=== PATIENT | male | born 1985 | race African-American/Black ===

== ENCOUNTER 2016-05-08 10:57 | Emergency (ER) | payer OTHER ==
[2016-05-08 11:03] VITALS: O2SAT 96
[2016-05-08] MEDS ORDERED: IPRATROPIUM/ALBUTEROL 3 ML DEYVIAL ONE (11:10)
[2016-05-08] MEDS ORDERED: IPRATROPIUM/ALBUTEROL 3 ML DEYVIAL IH ONE ×2 (11:19→11:58)
[2016-05-08] MEDS ORDERED: ALBUTEROL 3 ML DEYVIAL IH ONE (11:20)
[2016-05-08 11:21] VITALS: RESP 18
--- NOTE | 2016-05-08 11:23 | EDPHY ---
H & P Time Seen by Provider: 05/08/16 11:11 HPI/ROS: CHIEF COMPLAINT: Shortness of breath HISTORY OF PRESENT ILLNESS: The patient is a 30 year old male with history of asthma, presenting with dyspnea that started this morning. The patient developed cold like symptoms of cough and congestion 4 days ago. This morning he developed shortness of breath. He used his inhaler about 10 times today with no relief. He reports difficulty with deep inhalation. The patient was seen at urgent care and given DuoNeb and Decadron 10mg IM. He continued to have shortness of breath and was sent here for further evaluation. He denies chest pain. REVIEW OF SYSTEMS: Aside from elements discussed in the HPI, a comprehensive 10-point review of systems was reviewed and is negative. Past Medical/Surgical History: Asthma. Social History: no recent alcohol Smoking Status: Never smoked Physical Exam: General Appearance: Alert, no distress Eyes: Pupils equal and round, no conjunctival pallor or injection ENT, Mouth: Mucous membranes moist Neck: Normal inspection Respiratory: Normal respiratory rate, Patient is able to speak full sentences, Diffuse expiratory wheezes Cardiovascular: Regular rate and rhythm Gastrointestinal: Abdomen is soft and non-tender Neurological: A&O, nonfocal, normal gait Skin: Warm and dry, no rash Extremities: Nontender, no pedal edema Psychiatric: Mood and affect normal Constitutional: Initial Vital Signs Temperature (C) 36.5 C 05/08/16 11:02 Heart Rate 126 H 05/08/16 11:02 Respiratory Rate 24 H 05/08/16 11:02 Blood Pressure 138/85 H 05/08/16 11:02 O2 Sat (%) 96 05/08/16 11:02 O2 Delivery Mode Room Air Allergies/Adverse Reactions: No Known Allergies Allergy (Verified 07/21/15 06:17) Home Medications: Medication Instructions Recorded Albuterol [Proventil Inhaler] 2 puffs IH BID PRN 07/16/13 Ibuprofen [Motrin] 400 mg PO BID PRN 07/16/13 Azithromycin [Zithromax] 250 mg PO DAILY #6 tab 05/08/16 predniSONE 1 tab PO DAILY #15 tab 05/08/16 Medical Decision Making ED Course/Re-evaluation: This patient presents with persistent bronchospasm, without evidence of pneumonia. He was given albuterol nebs x3 and felt much better after the nebulized breathing treatments. Wants to go home. Oxygen saturation 98% on room air. Chest exam-persistent expiratory wheezing with good air exchange. I will send him home with an albuterol inhaler, a prednisone taper and with Zithromax. Differential Diagnosis: includes though not limited to pneumonia, status asthmaticus, hypoxia, respiratory failure. - Data Points Medications Given: Discontinued Medications Albuterol (Proventil Neb) 3 ml IH EDNOW ONE Stop: 05/08/16 11:21 Last Admin: 05/08/16 11:35 Dose: 3 ml Albuterol/Ipratropium (Duoneb) 3 ml IH EDNOW ONE Stop: 05/08/16 11:20 Last Admin: 05/08/16 11:21 Dose: 3 ml Albuterol/Ipratropium (Duoneb) 3 ml IH EDNOW ONE Stop: 05/08/16 11:59 Last Admin: 05/08/16 12:05 Dose: 3 ml Departure - Departure Disposition: Home, Routine, Self-Care Clinical Impression: Asthma exacerbation Qualifiers: Asthma severity: mild intermittent Qualifier Code: (J45.21) Mild intermittent asthma with (acute) exacerbation Instructions: Asthma (ED) Additional Instructions: Drink plenty of fluids. Take Prednisone as directed. Take full course of antibiotics as prescribed. Use inhaler as needed. Followup with your primary care physician is symptoms persist. Return to the Emergency Department with new or worsening symptoms. Referrals: Luke Viramontes MD [Primary Care Provider] - As per Instructions Prescriptions: Azithromycin [Zithromax] 250 mg PO DAILY #6 tab predniSONE 1 tab PO DAILY #15 tab Report Scribed for: Francisca Holloway Report Scribed by: Gay Lucio Date of Report: 05/08/16 Time of Report: 11:23 Physician Review and Approval Statement: 05/08/16 11:23 Portions of this note were transcribed by a medical practice administrator. I personally performed the history, physical exam, and medical decision-making; and confirmed the accuracy of the information in the transcribed note.
[2016-05-08 12:20] VITALS: BP 144/89; PULSE 103; TEMP 97.3
== END 2016-05-08 12:31 | disposition home or self-care (01) ==
DX: J45.21 Mild intermittent asthma with (acute) exacerbation (principal)

== ENCOUNTER 2017-04-10 11:41 | Emergency (ER) | payer OTHER ==
[2017-04-10] MEDS ORDERED: ALBUTEROL 3 ML DEYVIAL ONE ×2 (11:46→12:13)
[2017-04-10] MEDS ORDERED: IPRATROPIUM/ALBUTEROL 3 ML DEYVIAL IH ONE (11:51)
[2017-04-10] MEDS ORDERED: predniSONE 20 MG TAB ONE (11:59)
[2017-04-10] MEDS ORDERED: predniSONE 20 MG TAB PO ONE (12:00)
--- NOTE | 2017-04-10 12:15 | EDPHY ---
H & P Stated Complaint: asthma exacerbation Time Seen by Provider: 04/10/17 11:54 HPI/ROS: CHIEF COMPLAINT: Severe dyspnea HISTORY OF PRESENT ILLNESS: The patient has a history of asthma and presents to the ED with 1 day of severe dyspnea. The patient has had symptoms of an acute asthma exacerbation over the past several days. He has been using his albuterol inhaler frequently without improvement of his symptoms. The patient denies recent hospitalization or steroid use. The patient denies tobacco use. The patient denies any complaints of fever, he denies asymmetric calf pain or swelling. The patient denies additional significant past medical history. He does report severe dyspnea in the emergency department today. REVIEW OF SYSTEMS: A comprehensive 10 point review of systems is otherwise negative aside from elements mentioned in the history of present illness. Source: Patient - Personal History Current Tetanus/Diphtheria Vaccine: Yes Tetanus Vaccine Date: 2012 - Medical/Surgical History Hx Asthma: Yes Hx Chronic Respiratory Disease: Yes Hx Diabetes: No Hx Cardiac Disease: No Hx Renal Disease: No Hx Cirrhosis: No Hx Alcoholism: No Hx HIV/AIDS: No Hx Splenectomy or Spleen Trauma: No Other PMH: concussion, bronchitis, childhood asthma. - Social History Smoking Status: Never smoked - Physical Exam Exam: General Appearance: Alert, severe distress secondary to tachypnea Eyes: Pupils equal and round no pallor or injection ENT, Mouth: Mucous membranes moist Respiratory: Severe tachypnea, diffuse expiratory wheezing Cardiovascular: Tachycardic Gastrointestinal: Abdomen is soft and nontender, no masses, bowel sounds normal Neurological: A&O, normal motor function, normal sensory exam, normal cranial nerves Skin: Warm and dry, no rashes Musculoskeletal: Neck is supple nontender Extremities: symmetrical, full range of motion Constitutional: Initial Vital Signs Temperature (C) 36.9 C 04/10/17 11:43 Heart Rate 132 H 04/10/17 11:43 Respiratory Rate 40 H 04/10/17 11:43 Blood Pressure 132/101 H 04/10/17 11:43 O2 Sat (%) 98 04/10/17 11:43 O2 Delivery Mode Room Air Allergies/Adverse Reactions: No Known Allergies Allergy (Verified 04/10/17 11:43) Home Medications: Medication Instructions Recorded Albuterol [Proventil Inhaler] 2 puffs IH BID PRN 07/16/13 predniSONE [prednisone 20mg (RX)] 3 tab PO DAILY #15 tab 04/10/17 Medical Decision Making - Diagnostics Imaging Results: Imaging Impressions Chest X-Ray 04/10/17 12:04 Impression: 1. Findings consistent with airways disease. 2. Nodular opacity left mid lung, this may be inflammatory with follow-up recommended as clinically directed. ED Course/Re-evaluation: The patient presents to the ED with a severe asthma exacerbation. The patient received a DuoNeb and 2 albuterol nebulize treatments. He received 60 mg of oral prednisone. The patient received supplemental oxygen. The patient was started Heliox in the emergency department. The patient received a continuous albuterol nebulizer treatment. The patient was evaluated by myself multiple times over a 2.5 hr period in the emergency department. At 2:40 p.m. he is feeling much better and would like to be discharged. While the patient does have scant expiratory wheezing he is no longer tachypneic or hypoxemic. The patient will be started on oral steroids. He is encouraged to continue using his albuterol as prescribed. The patient is advised to return to the emergency department for markedly worsening chest pain, difficulty breathing or other concerns. The patient will follow up with his primary care provider for a recheck in the next week. He is advised to have a repeat chest x-ray in 3-6 months for follow- up of a small nodularity seen today. Differential Diagnosis: Differential diagnosis considered includes asthma, bronchitis, pneumonia Critical Care Time: Critical care time exclusive of procedures and exclusive of the PA's time was 35 minutes, performed by myself, Tom Monte MD. The patient presents to the ED with a severe asthma exacerbation with tachycardia, severe tachypnea and hypoxemia.. This required immediate treatment with multiple nebulizers and ultimately Heliox. The patient was placed on a continuous albuterol nebulizer in the emergency department. He required multiple bedside examinations. - Data Points Medications Given: Discontinued Medications Albuterol/Ipratropium (Duoneb) 3 ml IH EDNOW ONE Stop: 04/10/17 11:52 Last Admin: 04/10/17 11:51 Dose: 3 ml Prednisone (Prednisone) 60 mg PO EDNOW ONE Stop: 04/10/17 12:01 Last Admin: 04/10/17 12:01 Dose: 60 mg Departure - Departure Disposition: Home, Routine, Self-Care Clinical Impression: Exacerbation of asthma Qualifiers: Asthma severity: severe Asthma persistence: persistent Qualified Code(s): J45.51 - Severe persistent asthma with (acute) exacerbation Condition: Good Instructions: Asthma (ED) Additional Instructions: 1. Please schedule a follow-up appointment with Dr. Viramontes for recheck within the next week. 2. Prednisone as directed for next 5 days. 3. Use albuterol inhaler up to every 2 hr as needed. 4. Please have your primary care provider repeat a chest x-ray in 3-6 months to follow up a small nodule seen on the x-ray today. Referrals: Luke Viramontes MD [Primary Care Provider] - As per Instructions Prescriptions: predniSONE [prednisone 20mg (RX)] 3 tab PO DAILY #15 tab
[2017-04-10 13:30] VITALS: RESP 18
[2017-04-10 14:59] VITALS: BP 113/77; PULSE 113; TEMP 98.8; O2SAT 96
== END 2017-04-10 14:59 | disposition home or self-care (01) ==
DX: J45.51 Severe persistent asthma with (acute) exacerbation (principal)

== ENCOUNTER 2017-06-22 04:24 | Inpatient (IN) | payer OTHER ==
[2017-06-22] MEDS ORDERED: MAGNESIUM SULF 2 GM/WATER 50 ML BAG IV ONE (04:25)
[2017-06-22] MEDS ORDERED: methylPREDNISolone SOD SUCC 125 MG/2 ML VIAL ONE (04:25)
[2017-06-22] MEDS ORDERED: methylPREDNISolone SOD SUCC 125 MG/2 ML VIAL IVP ONE (04:27)
[2017-06-22] MEDS ORDERED: MAGNESIUM SULF 2 GM/WATER 50 ML IV ONE (04:28)
[2017-06-22] MEDS ORDERED: IPRATROPIUM/ALBUTEROL 3 ML DEYVIAL ONE (04:28)
[2017-06-22] MEDS ORDERED: ALBUTEROL 3 ML DEYVIAL ONE ×3 (04:37→04:38)
--- NOTE | 2017-06-22 04:44 | EDPHY ---
H & P Stated Complaint: asthma exacerbation, sx started approx 0100 HPI/ROS: Chief Complaint: Shortness of breath HPI: 31-year-old male with a history of intermittent asthma woke at 2 o'clock this morning severely short of breath. He had run out of his rescue inhaler in the used a nebulizer that he would have for some time. Is not sure when he got the nebulizer solution in his pretty sure that it has . On EMS arrival the patient was extremely short of breath speaking only 1-2 word phrases an very tight. They initiated CPAP and gave him a DuoNeb treatment. Patient states that he is not on normal control inhalers. Last asthma attack was 2 years ago. He has been intubated in the past. Usually triggered by upper respiratory illness but has not been sick lately. No new exposures. No fevers or chills. No cough. No nausea or vomiting. ROS: 10 point Review of Systems is negative except as noted in the HPI. PMH: Asthma Social History: No smoking, occasional alcohol, no recreational drug use Family History: non-contributory Physical Exam: Gen: Awake, Alert, in respiratory distress HEENT: Nose: no rhinorrhea Eyes: PERRLA, EOMI Mouth: Moist mucosa Neck: Supple, no JVD Chest: nontender, diminished breath sounds bilaterally with diffuse expiratory wheezing Heart: S1, S2 normal, no murmur Abd: Soft, non-tender, no guarding Back: no CVA tenderness, no midline tenderness Ext: no edema, non-tender Skin: no rash Neuro: CN II-XII intact, Sensation grossly intact, Strength 5/5 in bilateral upper and lower extremities - Personal History Tetanus Vaccine Date: 2012 - Medical/Surgical History Hx Asthma: Yes Hx Chronic Respiratory Disease: Yes Hx Diabetes: No Hx Cardiac Disease: No Hx Renal Disease: No Hx Cirrhosis: No Hx Alcoholism: No Hx HIV/AIDS: No Hx Splenectomy or Spleen Trauma: No Other PMH: concussion, bronchitis, asthma. - Social History Smoking Status: Never smoked Constitutional: Initial Vital Signs Heart Rate 124 H 06/22/17 04:30 Respiratory Rate 20 06/22/17 04:30 Blood Pressure 157/100 H 06/22/17 04:30 O2 Sat (%) 100 06/22/17 04:30 O2 Delivery Mode Bi-Pap O2 (L/minute) 15 Allergies/Adverse Reactions: No Known Allergies Allergy (Verified 06/22/17 04:33) Home Medications: Medication Instructions Recorded Albuterol [Proventil Inhaler] 2 puffs IH BID PRN 07/16/13 predniSONE [prednisone 20mg (RX)] 3 tab PO DAILY #15 tab 04/10/17 Medical Decision Making ED Course/Re-evaluation: Patient presenting in status asthmaticus. Patient on CPAP and has received 1 DuoNeb. IV placed by EMS. In the emergency department he was immediately placed on BiPAP. Solu-Medrol 125 mg ordered. Second DuoNeb ordered. Magnesium 2 g IV ordered. Patient is improved. He states he is feeling better. He is speaking in nearly full sentences. Oxygen saturations 100% on BiPAP. I have ordered a 10 mg continuous albuterol neb. Continues have diffuse expiratory wheezing but is moving more air. I have ordered chest x-ray and labs in anticipation patient will be admitted. Discussed with Dr. Zapata, hospitalist. Will admit to the Step-Down Unit for further care. - Data Points Laboratory Results: Laboratory Results 06/22/17 04:20 06/22/17 06/22/17 04:20 04:20 WBC 9.72 10^3/uL H 10^3/uL (3.80-9.50) RBC 6.44 10^6/uL H 10^6/uL (4.40-6.38) Hgb 17.6 g/dL H g/dL (13.7-17.5) Hct 50.1 % % (40.0-51.0) MCV 77.8 fL L fL (81.5-99.8) MCH 27.3 pg L pg (27.9-34.1) MCHC 35.1 g/dL g/dL (32.4-36.7) RDW 14.8 % % (11.5-15.2) Plt Count 215 10^3/uL 10^3/uL (150-400) MPV 9.4 fL fL (8.7-11.7) Neut % (Auto) 60.1 % % (39.3-74.2) Lymph % (Auto) 27.2 % % (15.0-45.0) [place] % (Auto) 9.3 % % (4.5-13.0) Eos % (Auto) 2.6 % % (0.6-7.6) Baso % (Auto) 0.5 % % (0.3-1.7) Nucleat RBC Rel Count 0.0 % % (0.0-0.2) Absolute Neuts (auto) 5.85 10^3/uL 10^3/uL (1.70-6.50) Absolute Lymphs (auto) 2.64 10^3/uL 10^3/uL (1.00-3.00) Absolute Monos (auto) 0.90 10^3/uL H 10^3/uL (0.30-0.80) Absolute Eos (auto) 0.25 10^3/uL 10^3/uL (0.03-0.40) Absolute Basos (auto) 0.05 10^3/uL 10^3/uL (0.02-0.10) Absolute Nucleated RBC 0.00 10^3/uL 10^3/uL (0-0.01) Immature Gran % 0.3 % % (0.0-1.1) Immature Gran # 0.03 10^3/uL 10^3/uL (0.00-0.10) Sodium Pending Potassium Pending Chloride Pending Carbon Dioxide Pending Anion Gap Pending BUN Pending Creatinine Pending Estimated GFR Pending Glucose Pending Calcium Pending Medications Given: Magnesium Sulfate (Magnesium Sulf 2 Gm (Premix)) 50 mls @ 50 mls/hr IV EDNOW ONE Stop: 06/22/17 05:27 Last Admin: 06/22/17 04:29 Dose: 50 mls Discontinued Medications Methylprednisolone Sodium Succinate (Solu-Medrol) 125 mg IVP EDNOW ONE Stop: 06/22/17 04:28 Last Admin: 06/22/17 04:27 Dose: 125 mg Departure - Departure Disposition: [facility] In[facility] Acute Clinical Impression: Status asthmaticus Condition: Serious Referrals: Patient,NotPresent [Primary Care Provider] - As per Instructions
[2017-06-22 04:50] LABS: PLATELET COUNT 215 10^3/uL (150-400)
[2017-06-22] MEDS ORDERED: ONDANSETRON DISINTEGRATING 4 MG TAB PO PRN (04:53)
[2017-06-22] MEDS ORDERED: ACETAMINOPHEN 325 MG TAB PO PRN (04:53)
[2017-06-22] MEDS ORDERED: ONDANSETRON 4 MG/2 ML VIAL IVP PRN (04:53)
--- NOTE | 2017-06-22 05:12 | PDGENHP ---
History and Physical - Chief Complaint Shortness of breath - History of Present Illness 31 yo M w/ hx of asthma presents with acute exacerbation. Patient states he felt "tight" yesterday morning but generally functioned ok throughout the day. He went to sleep and woke up in the middle of the night with severe shortness of breath. Upon arrival in ED he was speaking in 1-2 word phrases and was put on BIPAP. He has improved with nebulization treatments and ongoing NIPPV. 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 He uses is albuterol inhaler about 15 times weekly and is not on a controller medication. His last exacerbation was in April of 2017. History Information - Allergies/Home Medication List Allergies/Adverse Reactions: No Known Allergies Allergy (Verified 06/22/17 04:33) Home Medications: Albuterol [Proventil Inhaler] 2 puffs IH BID PRN 07/16/13 [Last Taken 07/16/13] I have personally reviewed and updated: family history, medical history - Past Medical History asthma - Surgical History Reports: no pertinent surgical hx - Family History Positive for: asthma - Social History Smoking Status: Never smoked Review of Systems Review of Systems: ROS: 10pt was reviewed & negative except for what was stated in HPI & below Physical Exam Physical Exam: Temp Pulse Resp BP Pulse Ox 36.4 C 120 H 26 H 143/87 H 100 06/22/17 04:53 06/22/17 05:00 06/22/17 05:00 06/22/17 05:00 06/22/17 05:00 Constitutional: appears nourished, uncomfortable Eyes: PERRL, EOMI Ears, Nose, Mouth, Throat: moist mucous membranes, no oral mucosal ulcers Cardiovascular: regular rate and rhythym, tachycardia Respiratory: reduced air movement, expiratory wheeze, respiratory distress Gastrointestinal: normoactive bowel sounds, soft, non-tender abdomen Skin: warm, normal color Musculoskeletal: full muscle strength, no muscle tenderness Neurologic: AAOx3, CN II-XII Intact Psychiatric: interacting appropriately, not encephalopathic Lab Data & Imaging Review 06/22/17 04:20 06/22/17 04:20 WBC 9.72 10^3/uL (3.80-9.50) H 06/22/17 04:20 RBC 6.44 10^6/uL (4.40-6.38) H 06/22/17 04:20 Hgb 17.6 g/dL (13.7-17.5) H 06/22/17 04:20 Hct 50.1 % (40.0-51.0) 06/22/17 04:20 MCV 77.8 fL (81.5-99.8) L 06/22/17 04:20 MCH 27.3 pg (27.9-34.1) L 06/22/17 04:20 MCHC 35.1 g/dL (32.4-36.7) 06/22/17 04:20 RDW 14.8 % (11.5-15.2) 06/22/17 04:20 Plt Count 215 10^3/uL (150-400) 06/22/17 04:20 MPV 9.4 fL (8.7-11.7) 06/22/17 04:20 Neut % (Auto) 60.1 % (39.3-74.2) 06/22/17 04:20 Lymph % (Auto) 27.2 % (15.0-45.0) 06/22/17 04:20 [place] % (Auto) 9.3 % (4.5-13.0) 06/22/17 04:20 Eos % (Auto) 2.6 % (0.6-7.6) 06/22/17 04:20 Baso % (Auto) 0.5 % (0.3-1.7) 06/22/17 04:20 Nucleat RBC Rel Count 0.0 % (0.0-0.2) 06/22/17 04:20 Absolute Neuts (auto) 5.85 10^3/uL (1.70-6.50) 06/22/17 04:20 Absolute Lymphs (auto) 2.64 10^3/uL (1.00-3.00) 06/22/17 04:20 Absolute Monos (auto) 0.90 10^3/uL (0.30-0.80) H 06/22/17 04:20 Absolute Eos (auto) 0.25 10^3/uL (0.03-0.40) 06/22/17 04:20 Absolute Basos (auto) 0.05 10^3/uL (0.02-0.10) 06/22/17 04:20 Absolute Nucleated RBC 0.00 10^3/uL (0-0.01) 06/22/17 04:20 Immature Gran % 0.3 % (0.0-1.1) 06/22/17 04:20 Immature Gran # 0.03 10^3/uL (0.00-0.10) 06/22/17 04:20 Sodium 144 mEq/L (135-145) 06/22/17 04:20 Potassium 4.0 mEq/L (3.5-5.2) 06/22/17 04:20 Chloride 105 mEq/L (97-110) 06/22/17 04:20 Carbon Dioxide 22 mEq/l (22-31) 06/22/17 04:20 Anion Gap 17 mEq/L (8-16) H 06/22/17 04:20 BUN 12 mg/dL (7-23) 06/22/17 04:20 Creatinine 0.8 mg/dL (0.7-1.3) 06/22/17 04:20 Estimated GFR > 60 06/22/17 04:20 Glucose 148 mg/dL (70-100) H 06/22/17 04:20 Calcium 8.9 mg/dL (8.5-10.4) 06/22/17 04:20 Visualized and Interpreted Chest x-ray results: Yes Chest X-Ray results: no infiltrate Assessment & Plan Assessment: 31 yo M w/ hx of asthma presents with acute exacerbation. Plan: 1. Moderate persistent asthma with acute exacerbation - Severe on presentation with significant respiratory distress and 2 word dyspnea. He is mildly improved now after steroids, nebulizer treatments, and NIPPV. He denies recent URI symptoms so trigger unclear although baseline control seems poor noting albuterol use about 15x weekly and last exacerbation in April. No additional controller medication use regularly. - Admit to SDU for close monitoring - Continuous albuterol nebulization now, 10 mg over 1 hour - Albuterol IH q4h juany + q2h PRN after that w/ continuous as needed - Will continue methylprednisolone q6h IV for now noting severity of exacerbation - Recommend additional controller medication at discharge Diet - Regular Code - Full Ppx - Low risk Dispo - Admit to SDU under observation status
[2017-06-22] MEDS ORDERED: NS 500 ML IV ONE (05:20)
[2017-06-22] MEDS: ALBUTEROL 3 ML DEYVIAL IH SCH ×2 (06:07→08:40)
[2017-06-22] MEDS ORDERED: predniSONE 20 MG TAB PO SCH (09:00)
[2017-06-22] MEDS ORDERED: methylPREDNISolone SOD SUCC 125 MG/2 ML VIAL IVP SCH (10:00)
--- NOTE | 2017-06-22 10:32 | HOSPPROG ---
Hospitalist Progress Note Assessment/Plan: # acute asthma exacerbation - improving but still significant bilat wheezes on exam - cont steroids (decrease), albuterol prn - started on advair and azith # acute hypoxic resp failure - cont SDU monitoring # lung nodule - resolved on CXR from today Objective: Vital Signs Temp Pulse Resp BP Pulse Ox 36.6 C 112 H 16 125/77 H 97 06/22/17 06:24 06/22/17 08:40 06/22/17 08:40 06/22/17 06:24 06/22/17 08:40 06/21/17 06/22/17 06/23/17 05:59 05:59 05:59 Intake Total 680 Balance 680 ICD10 Worksheet Patient Problems: Problems Problem Status Onset Status asthmaticus Acute
[2017-06-22] MEDS: AZITHROMYCIN 250 MG TAB PO SCH (11:30)
[2017-06-22] MEDS: FLUTICASONE/SALMETER 250/50MCG DISKUS IH SCH ×3 (12:19→21:16)
--- NOTE | 2017-06-22 12:55 | ASMTCASEMG ---
Living Arrangements What is your living Answers: Alone arrangement? Who do you live with? Type Of Residence What kind of residence do Answers: Apartment you live in? Discharge Plan Comments Coordination Status Comments Notes: Patient is a 31yo single male who presents with acute exacerbation of his asthma. Patient uses his albuterol inhaler about 15 times per week, however he is not on a controller medication. No therapies have been ordered. Patient will likely d/c independently. CM available for any d/c needs that may arise. Date Signed: 06/22/2017 12:54 PM Electronically Signed By:Luiza Calderon LCSW
[2017-06-22] MEDS ORDERED: FLU VACC QS 2017-18 (3YR+)/PF 0.5 ML SYR (FLUARIX QUAD) IM ONE (14:12)
[2017-06-22] MEDS ORDERED: PNEUMOCOCCAL 0.5ML VACCINE VIAL IM ONE (14:12)
[2017-06-22] MEDS: ALBUTEROL 3 ML DEYVIAL IH PRN ×2 (14:46→21:16)
--- NOTE | 2017-06-22 17:11 | GCON ---
[f rep st] CONSULTATION PULMONARY CONSULT DATE OF CONSULTATION: 06/22/2017 HISTORY OF PRESENT ILLNESS: This patient is a 31-year-old male with a longstanding history of asthma who presents with acute onset of shortness of breath. He has had asthma for quite a few years, but has not seen a [place] tribunal member or primary care physician. He gets albuterol from an unknown source and uses it up to 15 times per day. 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 Comm on triggers include cold air and upper respiratory infections, but he has not had an upper respirator y infection lately. In any case, he woke up in bed with acute onset of shortness of breath and chest discomfort and came to the emergency department where he could barely speak in 2-word sentences. He was treated with continuous albuterol nebulizers, Solu-Medrol, magnesium, and was placed on BiPAP. His breathing improved overnight, though he was still quite wheezy this morning at the time of my mandie luation. He denies any symptoms of reflux disease. No recent sick contacts. No recreational drug u se and no risk factors for sleep apnea. REVIEW OF SYSTEMS: Otherwise negative. PAST MEDICAL HISTORY: Only includes asthma. PAST SURGICAL HISTORY: None. FAMILY HISTORY: Does include asthma. SOCIAL HISTORY: He is a nonsmoker. No alcohol or IV drug use. MEDICATIONS: At home include only albuterol. PHYSICAL EXAM: VITAL SIGNS: His blood pressure is 125/70, heart rate of 112-120, respirations 16, o xygen saturation 97% on 4 L nasal cannula. GENERAL: He is very pleasant man, in no apparent distres s and able to speak in full sentences without using accessory muscles for breathing and seemed to hav e good insight into his underlying disease. HEENT: Pupils equally round and reactive to light, jesus cteric and noninjected. Mucous membranes are moist, without erythema or exudate. NECK: Supple, wit hout adenopathy or jugular vein distention. LUNGS: Breath sounds were remarkable for diffuse coarse bilateral wheezing, without rales. HEART: Regular rate and rhythm, without murmurs, rubs, gallops. ABDOMEN: Soft, nontender, nondistended, without hepatosplenomegaly. EXTREMITIES: Show no clubbin g, cyanosis, or edema. NEUROLOGIC: Nonfocal, including cranial nerves, deep tendon reflexes. SKIN: Warm and dry, without evidence of rash. OBJECTIVE DATA: Includes a chest x-ray that looked totally normal. There apparently was a nodule on an x-ray from April which has resolved. His labs were otherwise unremarkable, although he did barney ve a hematocrit of 50. ASSESSMENT AND PLAN: 1. Acute asthma exacerbation of uncertain etiology. I certainly agree with the steroids and nebuliz ers, although at this point, I think the dose can be lowered on the steroids to 60 daily and the albu terol can change to as needed. He certainly should start a long-term controller, so I started Advair today. He will eventually require complete pulmonary function test at the resolution of his acute e xacerbation. Macrolide antibiotics have also been useful, though his procalcitonin level was low, as much for their antibacterial properties as for their anti-inflammatory role, particularly in asthmat ics as well as patients with other obstructive lung disease. 2. Tachycardia. This is a sinus tachycardia, likely due from ongoing nebulizers. This should resol ve with reduction in his dose. 3. Pulmonary nodule. This appears to be resolved at this time. I do not feel that further imaging is required at this time. /[id number]/MODL
[2017-06-23] MEDS: ALBUTEROL 3 ML DEYVIAL IH PRN ×2 (05:20→22:24)
[2017-06-23] MEDS ORDERED: methylPREDNISolone SOD SUCC 125 MG/2 ML VIAL IVP SCH (09:00)
[2017-06-23] MEDS: AZITHROMYCIN 250 MG TAB PO SCH (09:00)
[2017-06-23] MEDS: FLUTICASONE/SALMETER 250/50MCG DISKUS IH SCH ×2 (09:57→20:12)
--- NOTE | 2017-06-23 10:06 | PDINTPN ---
Casting Machine Adjuster Progress Note Assessment/Plan: Assessment/plan: 31 M with history of asthma admitted 06/22/17 with exacerbation. 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 No URI, mo recreational drugs, new pets, etc. Treated with continuous nebs, high dose steroids, bipap, Mag, macrolide abx. Previously using excess albuterol without controller medication * asthma with acute exacerbation- much better and stable for floor with probable dc home in am. Started advair yesterday which should continue as outpatient. He should fu with me in a bout a month post dc and we will get eventual PFTs. He should pay particular attention to his work environment. Subjective: feels much better today with minimal cough and no sob. Objective: Vital Signs Temp Pulse Resp BP Pulse Ox 36.7 C 85 20 117/62 96 06/23/17 07:33 06/23/17 07:33 06/23/17 07:33 06/23/17 07:33 06/23/17 07:33 Microbiology 06/22/17 09:00 Respiratory Panel (PCR) - Final Nasal, Sinus - Swab No Organism Detected 06/22/17 06/23/17 06/24/17 05:59 05:59 05:59 Intake Total 680 1400 Balance 680 1400 Physical Exam - Physical Exam General Appearance: alert, no apparent distress, thin EENT: PERRL/EOMI Neck: supple Respiratory: rhonchi, wheezing, No respiratory distress, No accessory muscle use Cardiac/Chest: regular rate, rhythm, No edema Abdomen: non-tender, soft, No distended Skin: normal color, warm/dry, No cyanosis Lymphatic: no adenopathy Extremities: No pedal edema Neuro/Psych: alert, normal mood/affect, oriented x 3 ICD10 Worksheet Patient Problems: Problems Problem Status Onset Status asthmaticus Acute
--- NOTE | 2017-06-23 11:17 | HOSPPROG ---
Hospitalist Progress Note Assessment/Plan: # acute asthma exacerbation - off O2 today but still marked wheezes and slight increase in WOB - cont steroids (decrease), albuterol prn - started on advair and azith # acute hypoxic resp failure - ok for med surg # lung nodule - resolved on CXR from today Subjective: feels somewhat better today Objective: Vital Signs Temp Pulse Resp BP Pulse Ox 36.7 C 88 14 117/62 98 06/23/17 07:33 06/23/17 09:58 06/23/17 09:58 06/23/17 07:33 06/23/17 09:58 Microbiology 06/22/17 09:00 Respiratory Panel (PCR) - Final Nasal, Sinus - Swab No Organism Detected 06/22/17 06/23/17 06/24/17 05:59 05:59 05:59 Intake Total 680 1400 Balance [address] Arcos - Physical Exam Constitutional: no apparent distress, appears nourished Cardiovascular: regular rate and rhythym, no murmur, rub, or gallop Respiratory: expiratory wheeze (diffuse), respiratory distress (mild), No inspiratory crackles, No bronchial breath sounds Gastrointestinal: normoactive bowel sounds, soft, non-tender abdomen ICD10 Worksheet Patient Problems: Problems Problem Status Onset Status asthmaticus Acute
--- NOTE | 2017-06-23 11:18 | ASMTCMCOM ---
CM Note CM Note Notes: Patient is stable and may d/c home today independently to be followed up by Dr. Arcos in 1 month. No further needs. CM available if d/c needs arise. Date Signed: 06/23/2017 11:18 AM Electronically Signed By:Luiza Calderon LCSW
--- NOTE | 2017-06-23 13:00 | PDMN ---
Medical Necessity Medical necessity: M60 asthma- pt with persistent wheezing -slight increase in WOB, cont IV steroids, albuterol nebs PRN,
[2017-06-24 08:26] VITALS: BP 117/69; TEMP 98.7; O2SAT 97
[2017-06-24] MEDS ORDERED: predniSONE 20 MG TAB PO SCH (09:00)
--- NOTE | 2017-06-24 09:08 | PDINTPN ---
Type Copyist Progress Note Assessment/Plan: Assessment/plan: 31 M with history of asthma admitted 06/22/17 with exacerbation. 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 No URI, mo recreational drugs, new pets, etc. Treated with continuous nebs, high dose steroids, bipap, Mag, macrolide abx. Previously using excess albuterol without controller medication * asthma with acute exacerbation- Continues to improve despite persistent but better wheezing. OK for dc home today with prednisone taper (40x3, 30x3, etc) Advair and prn albuterol. Can prob dc macrolide at dc. FU about 4-6 weeks with me at [facility]. He should pay particular attention to his work environment. D/w Dr. Jennings 06/24/17 09:06 Subjective: no events. Feels well and denies sob. Much better and ready for dc Objective: Vital Signs Temp Pulse Resp BP Pulse Ox 37.1 C 97 18 117/69 97 06/24/17 08:00 06/24/17 08:00 06/24/17 08:00 06/24/17 08:00 06/24/17 08:00 Physical Exam - Physical Exam General Appearance: WD/WN, alert, no apparent distress EENT: PERRL/EOMI Neck: supple Respiratory: wheezing, No respiratory distress, No accessory muscle use, No rales, No rhonchi, No stridor Cardiac/Chest: regular rate, rhythm, No edema Abdomen: non-tender, soft, No distended Skin: normal color, warm/dry, No cyanosis Lymphatic: no adenopathy Extremities: No pedal edema Neuro/Psych: alert, normal mood/affect, oriented x 3 ICD10 Worksheet Patient Problems: Problems Problem Status Onset Status asthmaticus Acute
--- NOTE | 2017-06-24 09:13 | GDS ---
[f rep st] DISCHARGE SUMMARY ALL DIAGNOSES: 1. Acute asthma exacerbation. 2. Acute hypoxic respiratory failure. 3. Lung nodule, which had resolved on followup imaging. HOSPITAL COURSE: A 31-year-old man, who presented with an asthma exacerbation. No clear trigger. H nola was treated initially with continuous nebulizers, as well as high-dose steroids. These were tapere d. On the day of discharge, he is doing well. There are still bilateral wheezes, though he does not have any significant increased work of breathing. He will be discharged on albuterol inhaler, Advai r, prednisone taper. He will follow up with Dr. Arcos as an outpatient in about 1 month. He will al so get an additional 3 days of azithromycin. He is comfortable with this plan. BILLING: I spent less than 30 minutes on the day of discharge coordinating care. /[id number]/MODL
[2017-06-24] MEDS: FLUTICASONE/SALMETER 250/50MCG DISKUS IH SCH (09:17)
[2017-06-24 09:22] VITALS: PULSE 95; RESP 16
[2017-06-27] MEDS ORDERED: predniSONE 20 MG TAB PO SCH (09:00)
[2017-06-30] MEDS ORDERED: predniSONE 20 MG TAB PO SCH (09:00)
[2017-07-03] MEDS ORDERED: predniSONE 10 MG TAB PO SCH (09:00)
[2017-07-06] MEDS ORDERED: predniSONE 5 MG TAB PO SCH (09:00)
== END 2017-06-24 09:23 | disposition home or self-care (01) | DRG 202 ==
LOC: F2N 05:48 → OBSVTOIN 06-23 11:17
PROVIDERS: ADMIT Student in an Organized Health Care Education/Training Program; ATTEND Student in an Organized Health Care Education/Training Program
DX: J45.41 Moderate persistent asthma with (acute) exacerbation (principal); J96.01 Acute respiratory failure with hypoxia; R91.1 Solitary pulmonary nodule; Z23 Encounter for immunization
CPT/HCPCS: 96374; G0008; G0009; G0378; J2930; J3475; J7613